=== PATIENT | female | born 1990 | race Caucasian/White ===

== ENCOUNTER 2022-07-06 22:42 | Emergency (ER) | payer BC, OTHER ==
[~2022-07-06] VITALS: Ht 152.4 cm; Wt 47.6 kg
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
[2022-07-07 00:43] VITALS: BP 99/75
[2022-07-07] MEDS ORDERED: LIDO30AD10 TP (00:51)
[2022-07-07] MEDS ORDERED: METH-647 PO (00:51)
[2022-07-07] MEDS ORDERED: NAPROXEN 250 MG TABLET ONE (00:54)
[2022-07-07] MEDS ORDERED: NAPROXEN 500 MG TABLET PO ONE (01:00)
[2022-07-07] MEDS ORDERED: LIDOCAINE 5% (PATCH) 1 EA PATCH TP ONE (01:00)
== END 2022-07-07 01:03 | disposition home or self-care (01) ==
LOC: ER 22:44
DX: S16.1XXA Strain of muscle, fascia and tendon at neck level, initial encounter (principal); Z88.8 Allergy status to other drugs, medicaments and biological substances; Z60.2 Problems related to living alone; Z79.899 Other long term (current) drug therapy; V49.9XXA Car occupant (driver) (passenger) injured in unspecified traffic accident, initial encounter; Y93.89 Activity, other specified; Y92.89 Other specified places as the place of occurrence of the external cause; Y99.8 Other external cause status